=== PATIENT | male | born 1965 | race Two or more races ===

== ENCOUNTER → 2024-12-04 | Outpatient (CLI) | payer BC, SELFPAY ==
--- NOTE | 2024-12-04 09:25 | XR_ITS ---
Examination: Foot bilateral, 4 views Technique: AP, lateral each foot standing total 4 views Date and time of exam: December 04, 2024 at 0948 hours INDICATIONS: Right foot pain months FINDINGS: No fracture or dislocation involving either foot 2 mm right and left plantar bony calcaneal spurs Bilateral mild narrowing tibiotalar and intertarsal joints No erosive arthritis No cortical bone obstruction No opaque foreign bodies IMPRESSION: 2 mm right and left plantar bony calcaneal spurs Mild bilateral osteoarthritis
== END | disposition home or self-care (01) ==
LOC: SMRI 09:17
PROVIDERS: PCP Family Medicine; Referring Provider Family Medicine; Visit Provider Family Medicine
DX: M77.32 Calcaneal spur, left foot (principal); M77.31 Calcaneal spur, right foot; M19.072 Primary osteoarthritis, left ankle and foot; M19.071 Primary osteoarthritis, right ankle and foot
CPT/HCPCS: 73630